=== PATIENT | female | born 1955 | race Caucasian/White ===

== ENCOUNTER → 2020-09-18 12:53 | Outpatient (CLI) | payer BC, SELFPAY ==
--- NOTE | ~2020-09-18 | MM_ITS ---
EXAMINATION: MM screening rosette BI w marycarmen HISTORY: Screening mammogram TECHNIQUE: Craniocaudal and mediolateral oblique 3-D tomosynthesis images were obtained and synthetic 2-D images were generated. CAD analysis was submitted and interpreted. COMPARISON: 01/25/2018 diagnostic right digital mammogram and limited right breast ultrasound 01/11/2018, 06/13/2014 bilateral digital screening mammogram examinations BREAST PARENCHYMAL COMPOSITION: The breasts are heterogeneously dense, which may obscure small masses . FINDINGS: Possible 5 mm mass in the lower outer right breast (MLO Tomosynthesis image 11/43. Circumscribed 2.5 mm mass in the central left breast (MLO Tomosynthesis image 2539). Bilateral diagnostic mammography and ultrasound are recommended. IMPRESSION: 1. Bilateral breast masses are suggested 2. Bilateral diagnostic mammography and bilateral breast ultrasound examination are recommended. BI-RADS Category 0: Incomplete: Needs additional imaging evaluation. Reviewed, dictated and finalized at location A.
== END ==
PROVIDERS: Visit Provider Nurse Practitioner Obstetrics & Gynecology
DX: Z12.31 Encounter for screening mammogram for malignant neoplasm of breast (principal); R92.8 Other abnormal and inconclusive findings on diagnostic imaging of breast
CPT/HCPCS: 77063; 77067

== ENCOUNTER → 2020-10-23 09:42 | Outpatient (CLI) | payer BC, SELFPAY ==
--- NOTE | ~2020-10-23 | MMUS_ITS ---
EXAMINATION: MM diagnostic rosette BI w marycarmen, US breast BI complete HISTORY: Follow-up breast asymmetries. TECHNIQUE: Additional 3-D tomosynthesis images of the breasts were performed and synthetic 2-D images were generated. CAD analysis was submitted and interpreted. High resolution complete bilateral breas t ultrasound was performed. COMPARISON: Comparison to multiple prior studies sequentially, with oldest reviewed study dated 05/07. BREAST PARENCHYMAL COMPOSITION: Breast composed of scattered areas of fibroglandular density. FINDINGS: MAMMOGRAPHIC FINDINGS: In the right breast there is a 5 mm partially circumscribed mass in the lower outer quadrant of the r ight breast near the nipple. There are no suspicious masses, calcifications or architectural distorti on in the left breast to suggest malignancy. ULTRASOUND: Complete right breast ultrasound: At the areola there is an irregular shaped hypoechoic mass which is taller than wide, some angular margins, no significant posterior features and marginal vascularity. This mass measures 5 x 3 x 3 mm. No other masses are identified. Complete left breast ultrasound: Normal heterogeneous echotexture without focal solid or cystic mass. IMPRESSION: 1. Right breast mass near the areola measuring 5 mm with suspicious sonographic features. 2. Ultrasound-guided right breast biopsy recommended. BI-RADS category 4, suspicious findings. Reviewed, dictated and finalized at location A. IMPRESSION: 1. Right breast mass near the areola measuring 5 mm with suspicious sonographic features. 2. Ultrasound-guided right breast biopsy recommended. BI-RADS category 4, suspicious findings.
== END ==
PROVIDERS: Visit Provider Nurse Practitioner Obstetrics & Gynecology
DX: R92.8 Other abnormal and inconclusive findings on diagnostic imaging of breast (principal)
CPT/HCPCS: 76641; 77062; 77066; G0279

== ENCOUNTER 2023-01-27 11:23 | Emergency (ER) | payer BC, SELFPAY ==
--- NOTE | 2023-01-27 11:58 | ED.URI ---
HPI - URI/Sore Throat General Chief Complaint: Upper Respiratory Infection Stated Complaint: lt ear discomfort,congestion Source: patient Mode of arrival: ambulatory Limitations: no limitations History of Present Illness HPI Narrative: 67-year-old female presented for complaint of head and chest congestion for one week, and started with left ear feeling full and hearing is muffled for 2 days. States she is scheduled to fly to [place] this week and wants to make sure the ear is ok. Taking Mucinex. Denies ear pain, tinnitus, dizziness, n/v/d/f/c. Related Data Home Medications Medication Instructions Recorded Confirmed buspirone 10 mg tablet mg 01/27/23 Allergies Allergy/AdvReac Type Severity Reaction Status Date / Time Penicillins Allergy Unknown Skin Verified 05/01/17 21:20 Reaction poison umberto extract Allergy Unknown Skin Verified 05/01/17 21:20 Reaction Review of Systems Review of Systems: CONSTITUTIONAL: Denies malaise, chills, or fever. EYES: Denies visual changes, redness, or discharge. ENT: Reports ear pain, rhinorrhea, congestion, sinus pain CARDIOVASCULAR: Denies chest pain, palpitations, or edema. RESPIRATORY: Denies cough or dyspnea. GASTROINTESTINAL: Denies abdominal pain, nausea, vomiting, diarrhea SKIN: Denies rash or itching. MUSCULOSKELETAL: Denies myalgia. NEUROLOGIC: Denies headache. All systems reviewed & are unremarkable except as noted in HPI and below PMFSH Past Medical History Medical History (Updated 01/27/23 @ 12:26 by Stephanie Carlin APRN) No pertinent past medical history Comments At time of signature, agree with nursing past medical, surgical, social and family history. There is no relevant family history pertinent to the presenting complaint Exam Narrative: GENERAL: Well-appearing HEAD: Normocephalic EYES: PERRLA, conjunctivae clear ENT: Nares clear. Mucous membranes moist. TMs pearly hyman with dull light reflex bilaterally, no effusion; no tragal tenderness. Oropharynx not erythematous without lesions. Tonsils not enlarged and without exudate, no drooling, no hoarseness, no trismus, uvula midline. NECK: Supple. No lymphadenopathy CHEST: Clear to auscultation, breath sounds equal. No respiratory distress, speaks in full sentences. HEART: Regular rate and rhythm. No murmur heard. SKIN: Warm, dry, no rash. NEURO: Alert and oriented x3. PSYCH: Normal mood and affect Course Course Emergency Course: Patient is aware of diagnosis, understands and agrees to treatment plan. Anticipatory guidance given. Patient agrees to follow-up as directed and is aware of reasons to seek care at the emergency department. Portions of this record may have been created with voice recognition software Level of Care: Express Care Visit Vital Signs Vital signs: Vital Signs Temperature 97.9 F 01/27/23 12:01 Pulse Rate 70 01/27/23 12:01 Respiratory Rate 16 01/27/23 12:01 Blood Pressure 120/59 L 01/27/23 12:01 Pulse Oximetry 100 01/27/23 12:01 Oxygen Delivery Room Air 01/27/23 12:01 Temperature 97.9 F 01/27/23 12:01 Pulse Rate 70 01/27/23 12:01 Respiratory Rate 16 01/27/23 12:01 Blood Pressure 120/59 L 01/27/23 12:01 Pulse Oximetry 100 01/27/23 12:01 Oxygen Delivery Room Air 01/27/23 12:01 Reviewed MDM - URI/Sore Throat MDM Narrative Medical decision making narrative: Declines viral testing. Discussed physical exam findings. Advised supportive measures and signs/symptoms to go to the ER. Pt is appropriate for outpt treatment and f/u. Differential Diagnosis Differential diagnosis: Likely upper respiratory infection, otitis media, sinusitis and viral infection Discharge Plan Discharge Clinical Impression: Upper respiratory infection Patient Disposition: Home, Self-Care Condition: Stable Instructions: Antibiotic Form, Upper Respiratory Infection (ED) Additional Instructions: Recommend Flonase spray and Zyrtec (
[2023-01-27 12:01] VITALS: BP 120/59; PULSE 70; RESP 16; TEMP 36.6; O2SAT 100
== END 2023-01-27 12:36 | disposition home or self-care (01) ==
PROVIDERS: Emergency Provider Nurse Practitioner Family
DX: J06.9 Acute upper respiratory infection, unspecified (principal); Z79.899 Other long term (current) drug therapy
CPT/HCPCS: 99211; G0463

== ENCOUNTER 2023-07-29 11:35 | Emergency (ER) | payer BC, SELFPAY ==
[2023-07-29 11:59] VITALS: BP 106/47; PULSE 75; RESP 16; TEMP 36.7; O2SAT 100
--- NOTE | 2023-07-29 12:13 | ED.URI ---
HPI - URI/Sore Throat General Chief Complaint: Upper Respiratory Infection Stated Complaint: sorethroat,congestion Time Seen by Provider: 07/29/23 12:05 Source: patient and RN notes reviewed Mode of arrival: ambulatory Limitations: no limitations History of Present Illness HPI Narrative: Patient presents today complaining of a 3 day history of sore throat, fatigue, congestion and sinus pressure. Denies fever or cough. States sore throat has improved since onset. She has been taking some [id number] decongestants at home with some relief. Reports sick contact with grandchildren prior to onset of symptoms. Related Data Home Medications Medication Instructions Recorded Confirmed buspirone 10 mg tablet mg 01/27/23 fluoxetine 10 mg capsule mg 07/29/23 Allergies Allergy/AdvReac Type Severity Reaction Status Date / Time Penicillins Allergy Unknown Skin Verified 07/29/23 11:59 Reaction poison umberto extract Allergy Unknown Skin Verified 07/29/23 11:59 Reaction Review of Systems Review of Systems: CONSTITUTIONAL: Denies body aches, fever, chills, or sweats.+ fatigue EYES: Denies visual changes, redness, or discharge. ENT: Denies rhinorrhea, otalgia.+ nasal congestion, sinus pressure, sore throat CARDIOVASCULAR: Denies chest pain, palpitations, or edema. RESPIRATORY: Denies cough or dyspnea. GASTROINTESTINAL: Denies abdominal pain, nausea, vomiting, or diarrhea. GENITOURINARY: Denies dysuria or hematuria. SKIN: Denies rash, itching, or wounds. MUSCULOSKELETAL: Denies back pain, joint pain, or myalgia. NEUROLOGIC: Denies headache, numbness, tingling, or weakness. PSYCH: Denies depression or anxiety. [facility] Past Medical History Medical History No pertinent past medical history Comments At time of signature, I have reviewed and agree with nursing past medical, surgical, social and family history unless otherwise noted. Please see nursing chart for further information. There is no relevant family history pertinent to the presenting complaint Exam Narrative: GENERAL: Well-appearing, well-nourished, and in no acute distress. HEAD: Normocephalic, atraumatic. EYES: EOMI. No redness or drainage. Conjunctivae normal. ENT: Mucous membranes pink and moist. Nares mildly congested. No rhinorrhea. TMs normal bilaterally. Throat normal. Uvula midline. NECK: Normal AROM. Supple. No lymphadenopathy. CHEST: No respiratory distress. Clear to auscultation. HEART: Regular rate and rhythm. No murmur appreciated. EXTREMITIES: Normal range of motion. No edema. SKIN: Warm, dry, no rash. Capillary refill normal. Normal skin turgor. NEURO: No focal deficits. Alert and oriented x3. Gait steady. PSYCH: Normal affect. No signs of depression or anxiety. Course Course Level of Care: Express Care Visit Vital Signs Vital signs: Vital Signs Temperature 98.1 F 07/29/23 11:59 Pulse Rate 75 07/29/23 11:59 Respiratory Rate 16 07/29/23 11:59 Blood Pressure 106/47 L 07/29/23 11:59 Pulse Oximetry 100 07/29/23 11:59 Oxygen Delivery Room Air 07/29/23 11:59 Temperature 98.1 F 07/29/23 11:59 Pulse Rate 75 07/29/23 11:59 Respiratory Rate 16 07/29/23 11:59 Blood Pressure 106/47 L 07/29/23 11:59 Pulse Oximetry 100 07/29/23 11:59 Oxygen Delivery Room Air 07/29/23 11:59 Reviewed MDM - URI/Sore Throat MDM Narrative Medical decision making narrative: Rapid strep negative. Culture pending. Symptoms likely viral in etiology. Discussed [id number] medication use and duration of illness. Anticipatory guidance given. Differential Diagnosis Differential diagnosis: Likely upper respiratory infection, otitis media, sinusitis, viral infection, pharyngitis and other (Strep throat) Lab Data Attestation: I reviewed the patient's lab results. Labs: Strep Screen Presumptive Negative
== END 2023-07-29 12:24 | disposition home or self-care (01) ==
PROVIDERS: Emergency Provider Nurse Practitioner
DX: J06.9 Acute upper respiratory infection, unspecified (principal)
CPT/HCPCS: 87081; 87880; 99213; G0463